=== PATIENT | female | born 1990 | race Caucasian/White ===

== ENCOUNTER 2022-06-22 22:43 | Emergency (ER) | payer OTHER, SELFPAY ==
[2022-06-22 22:51] VITALS: BP 155/100; PULSE 94; RESP 18; TEMP 36.3; O2SAT 99; BMI 33.9
[2022-06-23 03:03] VITALS: BP 135/83; PULSE 75; RESP 16; TEMP 36.1; O2SAT 99
[2022-06-23 05:24] VITALS: BP 133/92; PULSE 71; RESP 16; TEMP 36.3; O2SAT 99
--- NOTE | 2022-06-23 05:25 | MHC.EDTECH ---
PT WAS CALLED BACK TO TRIAGE TO RE DO VITALS SIGN .
[2022-06-23 07:24] VITALS: BP 125/95; PULSE 74; RESP 16; TEMP 36.6; O2SAT 99
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
--- NOTE | 2022-06-23 08:30 | PC.NURSE ---
PT CLEARED FOR DISCHARGE. VSS. DENIES PAIN. NO COMPLAINTS.
[2022-06-23 08:31] VITALS: BP 128/89; PULSE 82; RESP 16; TEMP 36.6; O2SAT 99
== END 2022-06-23 08:45 | disposition home or self-care (01) ==
PROVIDERS: Emergency Provider Student in an Organized Health Care Education/Training Program; PCP Internal Medicine
DX: S16.1XXA Strain of muscle, fascia and tendon at neck level, initial encounter (principal); S09.90XA Unspecified injury of head, initial encounter; R51.9 Headache, unspecified; M54.2 Cervicalgia; V53.5XXA Driver of pick-up truck or van injured in collision with car, pick-up truck or van in traffic accident, initial encounter; Y93.9 Activity, unspecified; Y92.410 Unspecified street and highway as the place of occurrence of the external cause; Y99.9 Unspecified external cause status; Z79.899 Other long term (current) drug therapy
CPT/HCPCS: 99283

== ENCOUNTER 2024-04-03 14:12 | Emergency (ER) | payer OTHER, SELFPAY ==
--- NOTE | ~2024-04-03 | XR_ITS ---
EXAMINATION: XR ABDOMEN KUB CLINICAL INDICATION: abd pain, r/o SBO COMPARISON: None available. TECHNIQUE: AP view of the abdomen. FINDINGS: The bowel gas pattern is normal with no evidence of ileus or obstruction. No unusual soft tissue calcifications are noted. The bones are unremarkable. XR/XR KUB IMPRESSION: Unremarkable examination. Electronically signed by: Molly Henriquez MD 04/03/2024 07:36 PM EST
--- NOTE | ~2024-04-03 | CT_ITS ---
EXAMINATION: CT ABDOMEN AND PELVIS WITH CONTRAST CLINICAL INFORMATION: Abdominal pain COMPARISON: None TECHNIQUE: Multidetector volumetric imaging was performed from the superior aspect of the liver through the pubic symphysis with intravenous contrast. A total of 85 mL of Omnipaque 350 was utilized for the study. Sagittal and coronal reformatted images were obtained on the technologist's workstation. This CT examination was performed using dose optimization techniques as appropriate, variously including the following: *Automated exposure control *Adjustment of mA and/or kV according to patient size (this includes techniques or standardized protocols for targeted exams where dose is matched to indication/reason for exam; i.e. extremities or head) *Use of iterative reconstruction technique DLP: 650 mGy-cm FINDINGS: LUNG BASES: The visualized lung bases are unremarkable. LIVER, GALLBLADDER, AND BILIARY TREE: The liver is enlarged measuring just under 20 cm in greatest length. No focal hepatic lesion or biliary ductal dilatation is present. The gallbladder is unremarkable with no evidence of radiopaque gallstones, gallbladder wall thickening, or obvious pericholecystic inflammatory changes. PANCREAS: Unremarkable. SPLEEN: Spleen is enlarged at 13.3 cm in greatest length ADRENAL GLANDS: Unremarkable. KIDNEYS AND URETERS: The kidneys are normal in size, shape, and attenuation. No hydronephrosis, hydroureter, or calculi seen. No perinephric stranding. A benign small right lower pole 1.0 cm Bosniak class I renal cyst is noted which requires no additional imaging or follow up. No solid renal masses are seen. BLADDER: Unremarkable. GASTROINTESTINAL TRACT: The small and large bowel are unremarkable aside from some colonic diverticula without diverticulitis. The appendix has been removed. ABDOMINAL WALL: No significant hernia is appreciated. LYMPH NODES: Normal. VASCULAR: Unremarkable. PELVIC VISCERA: The uterus and adnexa are unremarkable. OSSEOUS STRUCTURES: Unremarkable. CT/CT abdomen pelvis w IV con IMPRESSION: 1. A cause for the patient's abdominal pain has not been found. 2. Incidental note made of mild hepatosplenomegaly and colonic diverticulosis without diverticulitis. Fleischner guidelines were followed. Electronically signed by: Rubin Beasley MD 04/03/2024 11:33 PM [facility]
[2024-04-03 14:50] VITALS: BP 143/90; PULSE 105; RESP 18; TEMP 36.4; O2SAT 100; BMI 29.2
[2024-04-03 15:42] LABS: MANUAL DIFF FLAG NO
[2024-04-03 15:45] LABS: Basophils Absolute Auto 0.1 X10*3/uL (0.0-0.2); Basophils Percent Auto 0.7 % (0-2); Eosinophils Absolute Auto 0.3 X10*3/uL (0.0-0.4); Eosinophils Percent Auto 2.6 % (0-4); Hemoglobin 13.8 g/dl (12.0-16.0); Imm Gran Abs Auto 0.03 X10*3/uL (0.00-0.03); Imm Gran Pct Auto 0.3 % (0.0-0.4); Lymphocytes Absolute Auto 2.1 X10*3/uL (1.2-4.9); Lymphocytes Percent Auto 19.9 % (20-40); Mean Corpuscular HGB Conc 32.9 g/dl (31.0-35.0); Mean Corpuscular Hemoglobin 29.2 pg (27.0-33.0); Mean Corpuscular Volume 88.8 fL (80.0-98.0); Mean Platelet Volume 9.8 fL (9.4-12.3); Monocytes Absolute Auto 0.6 X10*3/uL (0.1-1.2); Monocytes Percent Auto 5.7 % (2-11); Neutrophils Absolute Auto 7.6 x10*3/uL (2.0-8.3); Neutrophils Percent Auto 70.8 % (45-73); Platelet Count 330 X10*3/uL (160-400); Red Blood Count 4.73 X10*6/uL (4.20-5.50); Red Cell Distribution Width 12.5 % (11.0-16.0); White Blood Count 10.7 X10*3/uL (4.8-10.8)
[2024-04-03 16:09] LABS: Albumin Level 4.2 g/dL (3.5-5.0); Anion Gap 16 (12-20); Aspartate Amino Transferase 14 U/L (5-31); Bilirubin Total 0.3 mg/dL (0.0-1.0); Blood Urea Nitrogen 13 mg/dL (9-16); Calcium 9.4 mg/dL (8.4-10.2); Carbon Dioxide 21 mmol/L (22-29); Chloride 104 mmol/L (96-108); Estimated Glomerular Filt Rate > 60; Glucose Random 129 mg/dL (60-115); Lipase 16 U/L (8-78); Magnesium 2.2 mg/dL (1.6-2.6); Potassium 3.6 mmol/L (3.3-5.1); Sodium 137 mmol/L (135-145); Total Protein 7.4 g/dL (6.5-8.0)
[2024-04-03 16:11] LABS: HCG Quantitative < 2 mIU/mL
[2024-04-03 16:43] LABS: Alanine Aminotransferase 11 U/L (0-31); Alkaline Phosphatase 68 U/L (39-117)
--- NOTE | 2024-04-03 20:56 | ED_ITS ---
HPI - General Adult General Chief complaint: Abdominal Pain Stated complaint: bowel obstruction Time Seen by Provider: 04/03/24 20:55 Source: patient Mode of arrival: ambulatory Limitations: no limitations History of Present Illness ED Provider: Gavin GUTIERREZ HPI narrative: 33-YEAR-OLD FEMALE HEALTHY PRESENTS TO THE ED ABDOMINAL PAIN, NAUSEA, AND VOMITING. PATIENT WAS SEEN AT URGENT CARE AND WAS INFORMED SHE HAD A BOWEL OBSTRUCTION SO SHE WAS SENT TO THE ED. PATIENT STATES NO BOWEL MOVEMENT THE PAST 3 DAYS because she has not eaten much.. PATIENT STATES SHE TEST HERSELF FOR COVID RSV AND INFLUENZA TODAY at [facility] and SHE WAS NEGATIVE. Patient denies any chest pain, shortness of breath, coughing up blood, Urinary symptoms, vaginal bleedging, vaginal discharge, back pain, headache, neck stiffness, or any other concerning symptoms. Related Data Previous Rx's ?Medication ?Instructions ?Recorded acetaminophen 500 mg tablet 500 mg PO Q6H PRN fever or pain 06/23/22 (Tylenol Extra Strength) #14 tabs cyclobenzaprine 5 mg tablet 5 mg PO Q8H PRN pain (scale score 06/23/22 7-10) 5 days #14 tabs lidocaine 5 % topical patch 1 patch topical DAILY PRN pain #30 06/23/22 (Lidoderm) ea naproxen 500 mg tablet 500 mg PO BID PRN pain 10 days #20 06/23/22 tabs cephalexin 500 mg capsule 500 mg PO QID 7 days #28 caps 04/04/24 naproxen 500 mg tablet 500 mg PO BID PRN pain 7 days #14 04/04/24 tabs ondansetron HCl 4 mg tablet 4 mg PO Q8H PRN nausea and 04/04/24 vomiting #6 tabs Allergies Allergy/AdvReac Type Severity Reaction Status Date / Time No Known Allergies Allergy Verified 04/03/24 14:53 Review of Systems 2 Review of Systems: ABDOMINAL PAIN, NAUSEA, VOMITING. NO BOWEL MOVEMENT THE PAST 2 DAYS Yes all other systems are reviewed and are negative [facility] Social History Social History Advance Directives: No Advance Directives Information Provided: No Physical Exam ED Vital Signs: Vital Signs - 24 hr 04/03/24 14:50 04/03/24 21:40 04/04/24 02:23 Temperature 97.5 F 97.8 F 97.8 F Pulse Rate 105 H 98 98 Respiratory Rate 18 18 18 Blood Pressure 143/90 H 140/88 H 140/88 H Pulse Oximetry 100 100 100 Oxygen Delivery Method Room Air Room Air Room Air BMI result Body Mass Index 29.2 Const General: cooperative, healthy appearing, comfortable, no acute distress, well developed, alert, awake and Physically active Orientation/consciousness: patient oriented x3 HENMT Head: Yes normal to inspection, Yes No palpable skull fracture present and Yes normocephalic Ears: hearing grossly normal bilaterally, external ears normal, TM's normal bilaterally, TM normal on the right, TM normal on the left, EAC's normal, mastoids normal and no periauricular adenopathy Throat: Yes posterior oropharynx normal, Yes tonsils normal and Yes uvula midline Eyes General: appearance normal, both eyes and all related structures Neck Neck: Yes normal visual inspection, Yes full ROM, Yes no lymphadenopathy, Yes no meningeal signs, Yes trachea midline, Yes supple, No anterior neck swelling and No tender Chest Chest palpation & inspection: normal inspection of the chest and normal palpation of entire chest wall Resp Effort & Inspection: normal respiratory effort and able to speak in complete sentences Auscultation: clear to auscultation bilaterally Cardio Jugular venous distension: no JVD Heart sounds: S1 normal heart sound present and S2 normal heart sound present GI Inspection: Yes normal to inspection Palpation (GI): Soft to palpation, not firm, Tenderness to palpation present (GI) in the epigastrum, in the LLQ, in the RLQ, in the LUQ and in the RUQ, no guarding and not rigid General: Yes no CVA tenderness Back/Spine/Pelvis Back: no CVA tenderness and No back tenderness Skin General skin exam: no rashes or lesions noted, elasticity normal and turgor normal Neuro General: patient oriented x3, gait normal, tone normal, moves all extremities, Normal light touch and pain sensation, no meningeal signs, no focal motor deficits, CN's II-XI intact bilaterally and normal sensation to monofilament Extrem General: Yes normal to inspection, Yes full ROM and Yes capillary refill normal Psych Appearance: grossly normal, well kempt and not disheveled Medications Administered Discontinued Medications Generic Name Dose Route Start Last Admin Trade Name Freq PRN Reason Stop Dose Admin Iohexol 85 ml 04/03/24 22:49 04/03/24 22:49 Iohexol 350 Mg/Ml 100 Ml Infus..Btl IV 04/03/24 22:50 85 ml ONCE ONE Administration Ketorolac Tromethamine 30 mg 04/03/24 23:54 04/04/24 00:21 Ketorolac Tromethamine 30 Mg/Ml Vial IVPUSH 04/03/24 23:55 30 mg ONCE ONE Administration Medical Decision Making Medical Decision Making [facility] Narrative: 33-YEAR-OLD FEMALE PRESENTS TO THE ED FOR ABDOMINAL PAIN SENT BY URGENT CARE TO INFORMED HER CHEST SMALL BOWEL OBSTRUCTION. X-RAY NEGATIVE FOR BOWEL OBSTRUCTION. INITIAL LABS ARE NORMAL WAS SENT FOR CT SCAN. WAITING FOR UA. 2:08pm: CT scan normal negative for any acute etiologies. Patient is sleeping comfortably in bed. UA shows UTI. Patient is not any menstruation. We will send antibiotics. Patient explained worrisome signs and informed to return to the ED immediately. Patietn passed PO challenge in the ED. Not suspecting IN, peritonitis, perforation, ovarian torsion, ovarina cysts rupture, tuboovarian abscess, or any life threatening etioogy. Differential Diagnosis Differential Diagnoses: The differential diagnosis associated with the presentation includes (Small-bowel obstruction, UTI, appendicitis, cholecystitis) Admission/Observation Consideration of admission/observation: Escalation of care including admission/observation considered Lab Data [facility] Lab Attestation statement: I reviewed the patient's lab results. 04/03/24 15:39 04/03/24 15:39 Labs: Lab Results 04/03/24 04/04/24 Range/Units 15:39 01:19 WBC 10.7 (4.8-10.8) X10*3/uL RBC 4.73 (4.20-5.50) X10*6/uL Hgb 13.8 (12.0-16.0) g/dl Hct 42.0 (37.0-47.0) % MCV 88.8 (80.0-98.0) fL MCH 29.2 (27.0-33.0) pg MCHC 32.9 (31.0-35.0) g/dl RDW 12.5 (11.0-16.0) % Plt Count 330 (160-400) X10*3/uL MPV 9.8 (9.4-12.3) fL Immature Gran % (Auto) 0.3 (0.0-0.4) % Neut % (Auto) 70.8 (45-73) % Lymph % (Auto) 19.9 L (20-40) % [place] % (Auto) 5.7 (2-11) % Eos % (Auto) 2.6 (0-4) % Baso % (Auto) 0.7 (0-2) % Lymph # (Auto) 2.1 (1.2-4.9) X10*3/uL [place] # (Auto) 0.6 (0.1-1.2) X10*3/uL Eos # (Auto) 0.3 (0.0-0.4) X10*3/uL Baso # (Auto) 0.1 (0.0-0.2) X10*3/uL Abs Immat Gran (auto) 0.03 (0.00-0.03) X10*3/uL Absolute Neuts (auto) 7.6 (2.0-8.3) x10*3/uL Absolute Nucleated RBC 0.000 (0.0-0.012) X10*3/uL Nucleated RBC % (auto) 0.0 (0.0-0.2) /100WBC Sodium 137 (135-145) mmol/L Potassium 3.6 (3.3-5.1) mmol/L Chloride 104 (96-108) mmol/L Carbon Dioxide 21 L (22-29) mmol/L Anion Gap 16 (12-20) BUN 13 (9-16) mg/dL Creatinine 0.82 (0.5-1.4) mg/dL Estim Creat Clear Calc 108.0 Estimated GFR > 60 Random Glucose 129 H (60-115) mg/dL Calcium 9.4 (8.4-10.2) mg/dL Magnesium 2.2 (1.6-2.6) mg/dL Total Bilirubin 0.3 (0.0-1.0) mg/dL AST 14 (5-31) U/L ALT 11 (0-31) U/L Alkaline Phosphatase 68 (39-117) U/L Total Protein 7.4 (6.5-8.0) g/dL Albumin 4.2 (3.5-5.0) g/dL Lipase 16 (8-78) U/L Beta HCG, Quant < 2 mIU/mL Urine Color Yellow Urine Appearance Clear Urine pH 5.0 (5.0-9.0) Ur Specific [place] >= 1.030 H (1.005-1.025) Urine Protein Trace (Neg-Trace) mg/dL Urine Glucose (UA) Negative (Negative) mg/dL Urine Ketones Trace (Negative) mg/dL Urine Blood Large (3+) H (Negative) Urine Nitrite Negative (Negative) Ur Leukocyte Esterase Negative (Negative) Urine RBC 11-20 H (0-2) /HPF Urine WBC 6-10 H (0-5) /HPF Ur Squamous Epith Cells 6-10 (0-2) /HPF Urine Bacteria 1+ (None Seen) Hyaline Casts 0-2 (0-2) /LPF Independent Interpretation I performed an independent interpretation of an: CT Scan Radiology Impression Discussion of test interpretation with radiology: I have reviewed the radiologist's reading. Independent Historian Clinical information obtained from an independent historian. History obtained from or confirmed by: Other (patient) External Record Review External record reviewed: Other (prior visits) Prescription Management I considered prescription management with: Antibiotic Discharge Plan Discharge Clinical Impression: UTI (urinary tract infection), Abdominal pain Patient Disposition: Home, Self-Care Instructions: Urinary Tract Infection in Women (ED), Abdominal Pain (ED) Additional Instructions: Recommend follow up with primary care provider. Return to the ED immediately for any abdominal pain, hematuria, dysuria, flank pain, fever, chills, intractable nausea, vomiting, chest pain, shortness of breath, back pain, or any other concerning symptoms. CT/CT abdomen pelvis w IV con IMPRESSION: 1. A cause for the patient's abdominal pain has not been found. 2. Incidental note made of mild hepatosplenomegaly and colonic diverticulosis without diverticulitis. Fleischner guidelines were followed. Electronically signed by: Rubin Beasley MD 04/03/2024 11:33 PM [facility] Prescriptions: New cephalexin 500 mg capsule 500 mg PO QID 7 Days Qty: 28 0RF ondansetron HCl 4 mg tablet 4 mg PO Q8H PRN (Reason: nausea and vomiting) Qty: 6 0RF naproxen 500 mg tablet 500 mg PO BID PRN (Reason: pain) 7 Days Qty: 14 0RF No Action acetaminophen [Tylenol Extra Strength] 500 mg tablet 500 mg PO Q6H PRN (Reason: fever or pain) Qty: 14 0RF lidocaine [Lidoderm] 5 % adhesive patch,medicated 1 patch topical DAILY MDD remove after 12 hours PRN (Reason: pain) Qty: 30 0RF Rx Instructions: leave on most painful area for up to 12 hrs naproxen 500 mg tablet 500 mg PO BID PRN (Reason: pain) 10 Days Qty: 20 0RF cyclobenzaprine 5 mg tablet 5 mg PO Q8H PRN (Reason: pain (scale score 7-10)) 5 Days Qty: 14 0RF Stand Alone Forms: Work/School Release Interventions: ED Discharge Assessment Last Done: 04/04/24 02:23 Discharge Date/Time: 04/04/24 02:25 Print Language: Tamazight
[2024-04-03 21:40] VITALS: BP 140/88; PULSE 98; RESP 18; TEMP 36.6; O2SAT 100
--- NOTE | 2024-04-03 22:24 | PC.NURSE ---
Pt resting in bed. IV established to right hand. Awaiting CT.
[2024-04-03] MEDS: iohexoL 350 MG/ML 100 ML INFUS..BTL 85 ML IV (22:49)
--- NOTE | 2024-04-03 23:51 | PC.NURSE ---
Ambulating to the bathroom to provide urine sample with a steady gait.
[2024-04-04] MEDS: Ketorolac Tromethamine 30 MG/ML VIAL IVPUSH (00:21)
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
[2024-04-04 01:27] LABS: Appearance Urine Clear; Color Urine Yellow; Glucose Urine UA Negative (Negative); Leukocyte Esterase Urine Negative (Negative); Nitrite Urine Negative (Negative); Specific Gravity - Urine >= 1.030 (1.005-1.025); UMIC TRIGGER UACC YES; Urine Blood Large (3+) (Negative); Urine Ketones Trace mg/dL (Negative); Urine Protein Trace mg/dL (Neg-Trace)
[2024-04-04 01:34] LABS: Bacteria Urine 1+ (None Seen); Hyaline Casts Urine 0-2 /LPF (0-2); UACC Culture Trigger YES
[2024-04-04 02:23] VITALS: BP 140/88; PULSE 98; RESP 18; TEMP 36.6; O2SAT 100
== END 2024-04-04 02:25 | disposition home or self-care (01) ==
PROVIDERS: Emergency Provider Emergency Medicine; PCP Internal Medicine
DX: N39.0 Urinary tract infection, site not specified (principal); R10.9 Unspecified abdominal pain; R93.5 Abnormal findings on diagnostic imaging of other abdominal regions, including retroperitoneum
CPT/HCPCS: 36415; 74018; 74177; 80053; 81001; 83690; 83735; 84702; 85025; 87086; 96374; 99283; 99284; J1885; Q9967